=== PATIENT | female | born 1930 | race Caucasian/White ===

== ENCOUNTER 2018-03-11 06:04 | Inpatient (IN) | payer MEDICARE ==
[~2018-03-11] VITALS: Ht 154.9 cm; Wt 80.2 kg
[~2018-03-11 06:04] MED LIST: ASPIRIN EC81 MG PO; ATENOLOL50 MG PO; CIPROFLOXACIN500 MG PO; FAMOTIDINE40 MG PO; LOVASTATIN40 MG PO; METRONIDAZOLE250 MG PO; SYNTHROID88 MCG PO; VAGIFEM10 MCG VG
[2018-03-11] MEDS ORDERED: METOPROLOL SUCC50 MG PO (06:40)
--- NOTE | 2018-03-11 11:35 | NUR ---
PT TO ROOM 119 AT THIS TIME. PT ALERT AND ORIENTED. PT REPORTS NO PAIN, NO NAUSEA.
--- NOTE | 2018-03-11 12:56 | NUR ---
PT SITTING UP IN BED EATING HER LUNCH, ALERT AND ORIENTED. PT REPORTS NO PAIN.
--- NOTE | 2018-03-11 15:28 | EKG ---
[facility] [address] [facility] [place] [address] Signed Sinus rhythm with 1st degree AV block Left axis deviation Abnormal ECG When compared with ECG of 31-AUG-2016 21:25, No significant change was found Confirmed by MARGARETTE HO MD ([id number]) on 03/11/2018 3:28:25 PM Electronically Signed By: MARGARETTE HO MD 03/11/18 1528 PATIENT NAME: ANAHI CONNOR Electrocardiogram DATE OF : [birth year] PHYSICIAN: MARGARETTE HO MD REPORT #: [id number] REPORT IS CONFIDENTIAL AND NOT TO BE RELEASED WITHOUT AUTHORIZATION
--- NOTE | 2018-03-11 16:36 | NUR ---
THIS RN ASSUMING CARE OF PT. THIS RN TO ROOM TO CHECK ON PT. PT RESTING IN BED, NO REQUESTS OR COMPLAINTS. ASSESSMENT DONE. PT ASSISTED WITH TV REMOTE. MEDICATION GIVEN. BED RAILS UP. CALL LIGHT WITHIN REACH.
--- NOTE | 2018-03-11 16:54 | NUR ---
PT ARRIVED FROM ED TODAY FOR LIGHTHEADEDNES AND RECENT FALL. TELE#10, SR TODAY. +4 BACTERIA UTI, IV ABX. PT/OT. 2PA PIVOT TO COMODE. ECHO TODAY. PT USING CALL LIGHT APPROPRIATLY.
--- NOTE | 2018-03-11 16:57 | NUR ---
MED REC COMPLETED PER CLAIM HISTORY AND DISCUSSION WITH PATIENT.
--- NOTE | 2018-03-11 17:15 | NUR ---
THIS RN TO ROOM TO CHECK ON PT. PT REQUESTS ASSISTANCE WITH CUTTING UP HER FOOD. FOOD NOTED TO BE ON PTS SHEETS. PT STATES "I JUST WANT TO EAT AND THEN WE CAN CHANGE THE SHEETS." PT ASSISTED WITH CUTTING HER FOOD. TOWEL PLACED OVER PT FOR COMFORT WHILE EATING. PT OBSERVED SHE EATS HER FIRST 5 BITES. NO SWALLOWING ISSUES NOTED AT THIS TIME. BED RAILSUP. CALL LIGHT WITHIN REACH.
--- NOTE | 2018-03-11 19:51 | NUR ---
RECEIVED REPORT FROM DAY SHIFT RN. PATIENT IS RESTING IN BED VISITING WITH NEIGHBOR. PATIENT COMPLAINS OF BACK PAIN AND WOULD LIKE A TYLENOL WOTH EVEING MEDICATIONS. NO FURTHER NEEDS NOTED. CALL LIGHT IN REACH.
--- NOTE | 2018-03-11 20:15 | NUR ---
PATIENT ASSESMENT COMPLETED. [place] [facility] [place] PATIENT IS SLOW WITH MOVMENT. PATIENT HAS SMALL SCATTERED BRUISES UP AND DOWN THE RIGHT SIDE OF HER BACK. PATIENT STATED "THAT IS WHERE I FELL". PATIENT IS NOW BCAK IN BED RESTING. VITALS TAKEN AND RECORDED. PATIENT GIVEN EVENING MEDICATIONS PER ORDER. PATIENT RATES PAIN AT A 4/10. PATIENT GIVEN PRN TYLENOL. PATIENT DENIES ANY FURTHER NEEDS CALL LIGHT IN REACH.
--- NOTE | 2018-03-11 21:45 | NUR ---
PATIENT USED CALL LIGHT. PATIENT DENIES ANY NEEDS. PATIENT STATED "IT WAS AN ACCIDENT THAT I PUSHED THE BUTTON". REASSURED PATIENT THAT SHE COULD PUSH THE BUTTON FOR ANYTHING. PATIENT IS RESTING IN BED. CALL LIGHT IN REACH. ALARM ON FOR SAFETY.
--- NOTE | 2018-03-11 23:45 | NUR ---
PATIENT IS RESTING IN BED WITH EYES CLOSED, RR 16. TELE #10, NSR, HR 72. CALL LIGHT IN REACH.
--- NOTE | 2018-03-12 02:08 | NUR ---
PATIENT ASSISTED TO THE RESTROOM. PATIENT IS A 1-2PA W/FWW. PATIENT IS A PIVOT TRANSFER TO THE [facility] [place]. PATIENT WAS ABLE TO VOID. PATIENT IS NOW IN BED RESTING. PATIENT RATES PAIN AT A 4/10. PATIENT GIVEN PRN TYLENOL PER ORDER. PATIENT DENIES ANY FURTHER NEEDS AT THIS TIME. PATIENT REMAINS ON TELE #10, NSR, HR 78. CALL LIGHT IN REACH. PATIENT STATES THAT HER LIGHTHEADNESS IS LESS WHEN SHE IS GETTING UP NOW.
--- NOTE | 2018-03-12 04:59 | NUR ---
PATIENT RESTED ON AND OFF THROUGHOUT THE SHIFT. PATIENT IS ON A CARDIAC DIET AND TOLERATING WELL, NO NAUSEA NOTED. PATIENT IS WORKING WITH PT/OT. PATIENT IS ON TELE#10, NSR, HR IN THE 60-70'S. PATIENT IS A 1-2PA W/FWW, [place] [facility] [place]IENT RECEIVED X2 PRN TYLENOL FOR PAIN IN HER RIGHT BACK FROM A FALL. PATIENT MAKES FREQUENT BATHROOM TRIPS, OUPUT QS. PATIENT IS AAOX3 AND USES CALL LIGHT APPROPRIATELY.
--- NOTE | 2018-03-12 05:27 | NUR ---
PATIENTS VITALS TAKEN AND RECORDED. PATIENT ASSISTED TO THE BSC W/FWW. PATIENT WAS ABLE TO VOID. PATIENT IS NOW BACK IN BED RESTING. PATIENTS MORNGING MEDICAITONS GIVEN PER ORDER. PATIENT RATES PAIN AT A 2/10. PATIENT DENIES THE NEED FOR TYLENOL AT THIS TIME. PATIENT IS ON TELE #10, NSR, HR 66. PATIENT IS AAOX3. NO FURTHER NEEDS NOTED. PATIENT STATES SHE IS NOT DIZZY WHEN SHE GETS UP. CALL LIGHT IN REACH.
--- NOTE | 2018-03-12 06:58 | NUR ---
PATIENTS IV IS NOT LONGER PATENT. NEW IV STARTED. NO FURTHER NEEDS NOTED. CALL LIGHT IN REACH.
--- NOTE | 2018-03-12 07:48 | NUR ---
MORNING ASSESSMENT AND MEDICATIONS DUE. THIS RN TO BEDSIDE. PT REPORTS 7/10 PAIN "ONLY WHEN I'M MOVING." PAIN MANAGMENT PLAN DISCUSSED WITH PT. PT AGREEABLE TO PLAN. ASSESSMENT DONE. PT REPOSITIONED FOR BREAKFAST. MEDICATIONS GIVEN. PT STATES "THIS PAIN IS WORSE TODAY BUT I THINK I'M BETTER TODAY." BED RAILS UP. CALL LIGHT WITHIN REACH.
--- NOTE | 2018-03-12 08:40 | NUR ---
PATIENT UP IN BED, NEIGHBOR IN ROOM. PATIENT AGREED TO SHOWER AFTER PT THIS MORNING. 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 RN AND PT NOTIFIED. CALL LIGHT IN REACH
--- NOTE | 2018-03-12 09:05 | NUR ---
PT UP AMBULATING IN HALLS WITH PHYSICAL THERAPIST, ONE PERSON ASSIST WITH FWW.
--- NOTE | 2018-03-12 09:36 | NUR ---
INSURANCE CLAIMS SUPERVISOR REPORTS PTS FRIEND WAS HERE TO VISIT AND REPORTS THAT PT IS "NOT NORMAL." WHEN ASKED MORE PTS FRIEND STATES SLOW RESPONSES, AND SLURED SPEECH ARE NOT NORMAL FOR PT. THIS RN NOTIFIED AND TO BEDSIDE. FULL NEURO ASSESSMENT DONE. PUPILS REACTIVE. RIGTH SIDED LEG WEAKNESS NOTED. PT REPORTS DIFFICULTY BRINGING HER FORK TO MOUTH WITH RIGHT HAND DURING BREAKFAST. PT HAS DIFFICULTY TOUCHING NOSE WITH RIGHT HAND WHEN EYES ARE CLOSED, NO PROBLEM WITH LEFT HAND. MINOR SLURED SPEACH CONTINUES. PT ORIENED TO ALL. PT STATES "THIS HAS BEEN GOING ON FOR A WHILE" BUT IS UNABLE TO ARTICULATE WHAT S/S SHE IS REFERING TO. PT PLACED IN SHOWER CHAIR BY PHYSICAL THERAPY. PHYSICAL THERAPIST STATES PT IS LACKING PROPRIOCEPTION CITING THAT PT CANNOT TELL WHEN SHOWER CHAIR IS BEHIND HER. INSURANCE CLAIMS SUPERVISOR WITH PT FOR SHOWER. NOTIFIED OF CONDITION.
--- NOTE | 2018-03-12 09:50 | NUR ---
MD CALLED, UPDATED ON NEUROLOGICAL CHANGES. MD WILL VISIT PT SOON.
--- NOTE | 2018-03-12 10:00 | NUR ---
PATIENT IN SHOWER WITH THIS CNAS ASSISTANCE. PATIENT WAS ABLE TO HELP WITH VERY LITTLE OF THE SHOWER PROCEDURES. PATIENT APPEARS TO STRUGGLE IN LIFTING RIGHT ARM OR REACHING TO LEFT SIDE OF HER BODY WITH RIGHT ARM. PATIENT WAS VERY DELAYED AND AT TIMES, CONFUSED IN PERFORMING ANY ACTION DURING SHOWER, BUT REMEMBERED SHE WANTED HER OWN DEODORANT, FACE CREAM, AND RAZOR. VERY SLOW SHUFFLE BACK TO CHAIR. FRIEND/NEIGHBOR IN TO VISIT. DAUGHTER CALLED, PATIENT ASKED FOR HER TO CALL BACK. CALL LIGHT IN REACH, PATIENT BRUSHING HAIR AND TEETH IN CHAIR.
--- NOTE | 2018-03-12 10:05 | NUR ---
PT CALL LIGHT ON. THIS RN TO BEDSIDE. MACHINE PLUG SHAPER REQUESTS ASSISTANCE WITH GETTING PT BACK TO CHAIR. GATE BELT USED. PT ASSISTED BACK TO CHAIR. SHUFFELING GATE CONTINUES. PT ASSISTED WITH CONTINUED MORNING CARE AND ORAL CARE. PTS FRIEND HERE TO VISIT. PT WORKING WITH MACHINE PLUG SHAPER. NO ADDITIONAL REQUESTS OR COMPALINTS AT THIS TIME. CALL LIGHT WITHIN REACH.
--- NOTE | 2018-03-12 11:22 | NUR ---
FOCUSSED ASSESSMENT DUE. THIS RN TO BEDSIDE. PT VISITING WITH FRIEND. PTS FRIEND NOTES SLURRED SPEACH. PT REPORTS PAIN AT 5/10 "ONLY IF I MOVE." PT DECLINES NEED FOR ADDITIONAL MEDICATION AT THIS TIME STATING "I DON'T HAVE PAIN SITTING HERE." FOCUSSED ASSESSMENT DONE WITH SPECIAL ATTENTION TO NEUROLOCIAL. PT CONINUES TO HAVE SLURRED SPEACH, PROPRIOCEPTION ISSUES, MINOR WEAKNESS ON RIGHT SIDE AND SHUFFELING GATE. PT ORIENTED TO ALL. PT CONTINUES VISITING WITH FRIEND. PT ASSISTED TO ORDER LUNCH. NO ADDITIONAL REQUESTS OR COMPLAINTS. CALL LIGHT WITHIN REACH.
--- NOTE | 2018-03-12 12:01 | NUR ---
PT ASSISTED UP TO COMODE. 2PA, FWW. PT BACK TO CHAIR. NO REQUESTS OR COMPLAINTS AT THIS TIME. SHUFFELING GATE. GENERALIED WEAKNESS NOTED. DAUGHTER AT BEDSIDE. CALL LIGHT WITHIN REACH.
--- NOTE | 2018-03-12 13:45 | NUR ---
THIS BLOCK PRESS OPERATOR RESPONED TO CNAS CALL FOR A VITALS CART. PATIENT HAD GOTTEN VERY DIZZY IN BATHROOM AND WAS HAVING DIFFICULTY STANDING. VITALS WERE TAKEN AND JUDE BARRAGAN ASKED FOR ORHOSTATICS TO BE TAKEN. JUDE URIARTE IN ROOM BP STILL VERY HIGH, AND PATIENT STILL SHUFFLE-WALKED, BARLEY MOVING AT ALL, CONFUSED AND VERY WEAK ON HER FEET. WHEELCHAIR WAS USED TO MOVE PATIENT FROM TOILET TO BED. CALL LIGHT IN REACH. 2 NEW VISITORS IN ROOM
--- NOTE | 2018-03-12 14:30 | NUR ---
PATIENT UP IN BED, NEIGHBOR IN ROOM. VITALS AND I/OS CHARTED. DISCHARGE PLANNING IN ROOM. CALL LIGHT IN REACH
--- NOTE | 2018-03-12 17:00 | NUR ---
AFTERNOON ASSESSMENT AND MEDICATIONS DUE. THIS RN TO BEDSIDE. PT EATING DINNER. NO REQUESTS OR COMPLAINTS. PT VERBALIZES UNDERSTANDING OF PLAN OF CARE. ASSESSMENT DONE. MEDICATION GIVEN (SEE MAR). PT ANTICIPATING MRI LATER THIS EVENING. TYLENOL GIVEN FOR 5/10 PAIN THAT IS "WORSE WHEN I MOVE" AND IN ANTICIPATION OF THE MRI. NO ADDITIONAL REQUESTS OR COMPLAINTS AT THIS TIME. BED RAILS UP. CALL LIGHT WITHIN REACH.
--- NOTE | 2018-03-12 17:11 | NUR ---
PT HERE FOR RECENT FALL. TELE #10. 2PA PIVOT TO COMODE. PIV SL, VOIDING QUANITY SUFFICIENT. PRN TYLENOL FOR PAIN. LIDOCANE PATCH APPLIED. MONITORING NEURO STATUS CLOSELY, RIGHT SIDED WEAKNESS TODAY, SLURRED SPEACH AND SOME NUMBNESS. MRI TODAY AT 1800. PT/OT. PT USING CALL LIGHT APPROPRIATLY.
--- NOTE | 2018-03-12 17:40 | NUR ---
PATIENT UP IN BED, JUDE PALOMO IN WITH LIDOCAINE PATCH. VITALS AND I/OS CHARTED CALL LIGHT IN REACH
--- NOTE | 2018-03-12 17:58 | NUR ---
MRI TEAM ARRIVED. PT TRANSFERED WITH 4 PERSON ASSIST TO MRI BED. WARM BLANKET PROVIDED. PT LEAVES WITH TECHNITIAN AND A SMILE ON HER FACE.
--- NOTE | 2018-03-12 18:32 | NUR ---
PT RETURNED FROM MRI. PT TRANSFERED BACK TO BED WITH 4 PERSON ASSIST. WARM BLANKETS PROVIDED. TELE LEADS REPLACED, CCU CALLED. PT CALLING DAUGHTER TO UPDATE HER ON MRI. PT STATES SHE HAS NO REQUESTS OR COMPLAINTS AT THIS TIME AND WAS ABLE TO TOLERATE THE MRI "JUST FINE."
--- NOTE | 2018-03-12 18:53 | NUR ---
PT CALL LIGHT ON. PT REQUESTS ASSISTANCE UP TO COMODE. 2PA UP TO COMODE. PT REPORTS PAIN AT IV SITE. PIV ASSESSED. INFLAMATION NOTED. FLUSH ATTEMPTED. PT CRIES OUT IN PAIN. PIV DC'D PER PROTOCOL. PRESSURE HELD TO PIV SITE. GAUZE AND COBAN APPLIED. FRESH GOWN PROVIDED R/T BLEEDING. PT TRANFERED BACK TO BED. NEW PIV STARTED PER PROTOCOL. BLOOD RETURN NOTED WITH IV START. PIV SALINE LOCKED. ALCOHOL CAPS APPLIED. BED RAILS UP. CALL LIGHT WITHIN REACH.
--- NOTE | 2018-03-12 19:10 | NUR ---
RECEIVED REPORT FROM DAY SHIFT RN. PATIENT IS RESTING IN BED. NO NEEDS NOTED. CALL LIGHT IN REACH.
--- NOTE | 2018-03-12 20:25 | NUR ---
PATIENT ASSESMENT COMPLETED. PATIENT ASSISTED TO THE [facility] [place] PATIENT WAS ASSISTED A 1PA W/FWW, PIOVTG TRANSFER TO [facility] [place]. PATIENT IS UNSTEADY AND HAS A SHUFFLE TO HER GAIT. PATIENT DID TOLERATE ACTIVITY WELL. PATIENT WAS ABLE TO VOID. PATIENT IS BACK IN BED RESTING. NO FURTHER NEEDS NOTED. CALL LIGHT IN REACH.
--- NOTE | 2018-03-12 21:20 | NUR ---
[place] [facility] [place] PIVOT TRANSFER. PATIENT WAS ABLE TO VOID. PATIENT HAD A BOUT OF INCONTINENCE. PATIENTS UNDERWEAR AND PAD CHANGED. PATIENT IS NOW BACK IN BED RESTING. PAITENTS EVENING MEDICATIONS GIVEN PER ORDER. PATIENT GIVEN A PRN TYLENOL PER ORDER FOR 5/10 PAIN IN HER RIGHT BACK. PATIENT DENIES ANY FURTHER NEEDS AT THIS TIME. CALL LIGHT IN REACH.
--- NOTE | 2018-03-12 23:15 | NUR ---
PATIENT ASSISTED TO THE BSC BY FAMILY AND DIVORCE LEGAL ASSISTANT. PATIENT RATES PAIN AT A 4/10. PATIENT STATED "I AM JUST STIFF NOW". PATIENT IS BACK IN BED RESTING. BED ALARM ON FOR SAFETY. CALL LIGHT IN REACH.
--- NOTE | 2018-03-12 23:22 | NUR ---
PATIENT CALLED TO USE THE BATHROOM. 1 PA TO BEDSIDE COMMODE USING WALKER. PATIENT IS BACK IN BED. CALL LIGHT WITHIN REACH.
--- NOTE | 2018-03-13 00:17 | NUR ---
PT CALLED TO USE THE BATHROOM. PT DISORIENTATED, WANTING THE SIDE RAIL DOWN, BUT NOT SAYING THE WORDS. ASSISTED PT UP OUT OF BED, WITH FWW TO BSC. PT STATING SHE HAD A "DREAM", SEEMED TO NOT KNOW WHERE SHE WAS. USE THE BSC, THEN UP TO BED, SLOW TO RESPOND TO CUEING/COMMANDS. ONCE IN BED, ASSIST OF 2ND RN TO PULL PT UP IN BED, SHE AGAIN SAID SHE HAD A DREAM, AT ONE POINT KNEW SHE WAS IN THE HOSPITAL, BUT VERY SLOW TO RESPOND. ASSISTED HER IN POSITIONING TO PT COMFORT LEVEL, CLEARED UP SOME ONCE STAFFF LEFT ROOM. CALL LIGHT WITHIN REACH.
--- NOTE | 2018-03-13 01:23 | NUR ---
PATIENT ASSISTED TO THE BSC BY DIANA. PATIENT IS NOW BACK IN BED RESTING. PATIENT IS AAOX3. PATIENT STATED "SORRY ABOUT LAST TIME, I JUST HAD A VERY BAD DREAM". PATIENT IS ABLE TO ANSWER ALL QUESTIONS WITH NO PAUSES TO ANSWER. PATIENT RATES PAIN AT A 3/10. PATIENT DENIES ANY NEED FOR TYLENOL AT THIS TIME. NO FURTHER NEEDS NOTED. CALL LIGHT IN REACH.
--- NOTE | 2018-03-13 03:01 | NUR ---
PATIENT USED THE CALL LIGHT. 1 PA TO BEDSIDE COMMODE USING WALKER. CHANGED UNDERWEAR AND UNDER PAD. PATIENT IS BACK IN BED. CALL LIGHT WITHIN REACH.
--- NOTE | 2018-03-13 03:18 | NUR ---
PATIENT ASSISTED TO THE BS A 1PA W/FWW, PIVOT TRANSFER TO [facility] [place]. PATIENT WAS ABLE TO VOID. PATIENT IS BACK IN BED RESTING. PATIENT RATES PAIN AT A 4/10. PATIENT GIVEN PRN TYLENOL PER ORDER. PATIENT DENIES ANY FURTHER NEEDS CALL LIGHT IN REACH.
--- NOTE | 2018-03-13 05:05 | NUR ---
PATIENT RESTED ON AND OFF THROUGHOUT THE SHIFT. PATIENT IS ON A CRADIAC DIET. PATIENT IS ON RA. PATIENT IS WORKING WITH PT/OT. BLADIMIR IS ON TELE #10, NSR, HR IN THE 60-70. PATIENT IS A 1PA W/FWW, PIVOT TRANSFER TO [facility] [place]. PATIENT DENIED BEING LIGHT HEADED OR DIZZY. PATIENT RECEIVED PRN TYLENOL X2 FOR PAIN IN HER RIGHT BACK. PATIENT HAS A SHUFFLE TO HER GAIT. PATIENT IS SLOW TO RESPOND TO QUESTIONING AT TIMES. PATIENT IS AAOPX3 AND USES CALL LIGHT APPROPRIATELY.
--- NOTE | 2018-03-13 06:12 | NUR ---
PATIENTS VITALS TAKEN AND RECORDED. PATIENTS INTAKE AND OUPUT RECORDED. PATIENT RATES PAIN AT A 3/10. PATIENT DENIES THE NEED FOR PAIN MEDICATION AT THIS TIME. PATIENTS MORNING MEDICATION GIVEN PER ORDER. PATIENT DENIES ANY FURTHER NEEDS. CALL LIGHT IN REACH.
--- NOTE | 2018-03-13 08:00 | NUR ---
PT RESTING IN BED, MILDLY CONFUSED, PT IS SLOW TO SPEAK. PT DENIES DISTRESS, FORGETFUL. PT IS X1 ASSIST TO BSC WITH WALKER FOR BALANCE, GENERALIZED WEAKNESS. EATING BREAKFAST WITHOUT DIFFICULTY. WILL CONTINUE TO MONITOR.
--- NOTE | 2018-03-13 09:08 | NUR ---
PATIENT SITTING UP IN BED, USING INCENTIVE SPIROMETER. THIS COOKER MECHANIC ASSISTED PATIENT TO WASH HANDS AND FACE AND SET PATIENT UP FOR ORAL CARE. PATIENT REQUESTED HER RAZOR AND SHAVING CREAM AND ASKED TO BE ALONE WHILE SHE SHAVES. THIS COOKER MECHANIC PROVIDED PATIENT PRIVACY, AND RETURNED AT A LATER TIME, APPROXIMATELY FIVE MINUTES LATER. PATIENT WAS FINISHED SHAVING AND APPLYING LOTION. THIS COOKER MECHANIC ASKED PATIENT IF SHE NEEDED ANYTHING ELSE AND PATIENT APPEARED TO GET FRUSTRATED, STATING "JUST GO AWAY AND LEAVE ME ALONE. I WILL CALL YOU WHEN I NEED YOU." RN NOTIFIED. CALL LIGHT IN REACH. NO OTHER NEEDS AT THIS TIME.
--- NOTE | 2018-03-13 10:02 | NUR ---
MED REC COMPLETE
--- NOTE | 2018-03-13 11:54 | NUR ---
PT RESTING AT BEDSIDE, ASKED ABOUT LUNCH ORDER, GEOSCIENCE LABORATORY TECHNICIAN TO VERIFY ORDER IS IN SYSTEM. PT HAS NO DISTRESS, NO CHANGES IN CONDITION.
--- NOTE | 2018-03-13 14:39 | NUR ---
STEPPED IN TO CHECK ON PT, SHE SEEMED SOMEWHAT DISTANT. PT MENTIONED THAT SHE NEEDED THE HELP OF A INTERACTIVE WEB DEVELOPER. I RETRIEVED ONE FOR HER. WILL FOLLOW A NEEDED
[2018-03-13] MEDS ORDERED: LOVASTATIN40 MG PO (15:18)
[2018-03-13] MEDS ORDERED: CEPHALEXIN500 MG PO (15:18)
[2018-03-13] MEDS ORDERED: FAMOTIDINE20 MG PO (15:20)
[2018-03-13] MEDS ORDERED: LIDODERM1 EACH TD (15:21)
[2018-03-13] MEDS ORDERED: MAPAP500 M1 PO (15:21)
--- NOTE | 2018-03-13 15:38 | NUR ---
TALKED WITH PT ABOUT GOING TO A SNF AND SHE STATED SHE WANTS TO GO TO [facility] THIS IS KEEPING HER CLOSE FOR HER FAMILY. FAXED CHART NOTES INCLUDING FACESHEET, ER NOTES, H AND P, PROG NOTES, IMAGING, PT AND OT EVAL AND NOTES TO [facility] AND TALKED WITH STEFFANY. ORDERS ALSO FAXED FOR TOMORROW. CALLED [phone] AND TALKED WITH HER DAUGHTER NIDHI ABOUT PT GOING TO [facility] AND EXPLAINED ITEMS SHE MAY NEED OR LIKE THERE. TALKED ABOUT FINANCIAL INFOR ALSO. DAUGHTER SEEMED OK WITH EVERYTHING. RECIEVED A FAX CONFIRMATION REGARDING NOTES SENT TO [facility]
--- NOTE | 2018-03-13 16:13 | NUR ---
PT RESTING AT BEDSIDE, PT HAS GENERALIZED WEAKNESS AND GENERALIZED PAIN UPON MOVEMENT, GAVE PRN TYLENOL PER ORDERS. PT REMAINS FORGETFUL, NO DISTRESS. PT USING CALL LIGHT APPROPRIATELY. GETS OUT OF BED WITH ASSIST AND WALKER.
--- NOTE | 2018-03-13 17:35 | NUR ---
THIS WOOL WASHER ASSISTED PATIENT UP TO SHOWER. PATIENT SHOWERED INDEPENDENTLY WITH HELP FOR HARD TO REACH PLACES. PATIENT DRESSED IN CLEAN GOWN. PATIENT TRANSFERRED BACK TO BED. PATIENT SITTING UP IN BED, CALL LIGHT IN REACH, EATING DINNER. RN IN ROOM. NO OTHER NEEDS AT THIS TIME.
--- NOTE | 2018-03-13 18:48 | NUR ---
PT HAS BEEN UP WITH ASSIST TODAY, SUCCESSFULLY SHOWERED. PT HAS BEEN FORGETFUL BUT ABLE TO CONVERSE AND MAKE NEEDS KNOWN. CALL LIGHT APPROPRIATE FOR THE ENTIRE SHIFT.
--- NOTE | 2018-03-13 19:40 | NUR ---
RECEIVED REPORT FROM DAY SHIFT RN. PATIENT IS RESTING IN BED VISITING WITH FAMILY. NO NEEDS NOED. CALL LIGHT IN REACH.
--- NOTE | 2018-03-13 21:07 | NUR ---
PATIENT ASSESMENT COMPLETED. PATIENT ASSISTED TO THE RESTROOM A 1PA W.FWW. PATIENT PIVOT TRANSFERED TO THE [facility] [place]. PATIENT CONTINUES TO HAVE A SHUFFLE TO HER GAIT. PATIENT TOLERATED ACTIVITY WELL. PATIENT IS BACK IN BED RESTING. PATIENT RATES PAIN AT A 5/10 W/ACTIVITY. PATIENT GIVEN PRN TYLENOL PER ORDER AND PER PATIENT REQUEST. PATIENTS EVENING MEDICATIONS GIVEN PER ORDER. PATIENT DENIES ANY FURTHER NEEDS CALL LIGHT IN REACH.
--- NOTE | 2018-03-13 23:11 | NUR ---
PATIENT IS RESTING IN BED WITH EYES CLOSED, RR 17. CALL LIGHT IN REACH.
--- NOTE | 2018-03-14 00:59 | NUR ---
PATIENT ASSISTED TO THE RESTROOM BY PACKAGING ENGINEER. PATIENT IS NOW BACK IN BED RESTING. PATIENT DENIES ANY NEEDS AT THIS TIME. CALL LIGHT IN REACH.
--- NOTE | 2018-03-14 01:50 | NUR ---
PATIENT ASSISTED TO THE RESTROOM. PATIENT IS A 1PA W/FWW. PATIENT WAS INCONTINENT AND ABLE TO VOID A SMALL AMOUNT. PATIENT IS BACK IN BED RESTING. PATIENT GIVEN PRN TYLENOL PER REQUEST FOR 4/10 PAIN IN HER RIGHT BACK. PATIENT IS VERY TEARFUL. PATIENT PROVIDED WITH EMOTIONAL SUPPORT AND REASSURANCE. NO FURTHER NEEDS NOTED. CALL LIGHT IN REACH.
--- NOTE | 2018-03-14 02:36 | NUR ---
PATIENT ASSISTED TO THE BSC A 1PA W/FWW. PATIENT WAS ABLE TO VOID A SMALL AMOUNT. PATIENT IS BACK IN BED RESTING. PATIENT STATED "MY PAIN IS BETTER WITH THE TYLENOL YOU GAVE ME". NO FURTHER NEEDS NOTED. CALL LIGHT IN REACH.
--- NOTE | 2018-03-14 04:19 | NUR ---
PATIENT IS RESTING IN BED WITH EYES CLOSED, RR 17. CALL LIGHT IN REACH.
--- NOTE | 2018-03-14 04:55 | NUR ---
PATIENT RESTED ON AND OFF THROUGHOUT THE SHIFT. PATIENT MADE MULTIPLE TRIPS TO THE [facility] [place]. PATIENT IS ON A CRADIAC DIET AND TOELRATING IT WELL. PATIENT IS WORKING WITH PT/OT. PATIENT IS A 1PA W/FWW. PATIENT IS SL AND IV FLUSHES WELL. PATIENT RECEIVED PRN TYLENOL X2 FOR PAIN IN HER RIGHT BACK. PATIENT IS AAOX3.
--- NOTE | 2018-03-14 04:57 | NUR ---
PATIENT RESTED ON AND OFF THROUGHOUT THE SHIFT. PATIENT MADE MULTIPLE TRIPS TO THE [facility] [place] PATIENT IS ON A CRADIAC DIET AND TOELRATING IT WELL. PATIENT IS WORKING WITH PT/OT. PATIENT IS A 1PA W/FWW. PATIENT IS SL AND IV FLUSHES WELL. PATIENT RECEIVED PRN TYLENOL X2 FOR PAIN IN HER RIGHT BACK. PATIENT IS AAOX3.
--- NOTE | 2018-03-14 06:26 | NUR ---
PATIENT ASSISTED TO THE BSC A 1PA W/FWW. PATIENT WAS ABLE TO VOID A SMALL AMOUNT. PATIENT ASSISTED TO DRESS. PATIENT IS NOW RESTING IN RECLINER AND IS READY TO DC AT 0830. PATIENT GIVEN PRN TYLENOL FOR PAIN IN HER BACK. PATIENT ALSO GIVEN SCHEDULED MORNING MEDICAITONS PER ORDER. NO FURTHER NEEDS NOTED. CALL LIGHT IN REACH.
--- NOTE | 2018-03-14 07:19 | NUR ---
LETICIA FAXED TO [facility].
--- NOTE | 2018-03-14 08:00 | NUR ---
PT UP TO CHAIR, DOING MORNING ROUTINE, BREAKFAST EATEN EARLY. PT READY FOR DISCHARGE. PT HAS NO DISTRESS, STATES SHE DOESN'T FEEL WELL. PT CANNOT ARTICULATE WHY SHE IS FEELING POORLY. PUBLIC WORKS LABORER EQUAL, X1 ASSIST WITH WALKER. PREPARING FOR DISCHARGE. REPORT CALLED TO FACILITY, CALLED [facility].
--- NOTE | 2018-03-14 08:05 | NUR ---
PACKET FOR [facility] PREPPED AND GIVEN TO NURSING STAFF FOR PT GO TO [facility].
--- NOTE | 2018-03-14 10:50 | NUR ---
MET WITH PT SHE WAS BEING WHEELED OUT FOR DC. SHE REACHED OUT FOR MY HAND, AND SAID SHE WAS GOING TO GET BETTER.EXTENDED A BLESSING, SHE THANKED ME.
== END 2018-03-14 08:25 | DRG 65 ==
LOC: ED 06:04 → MS 11:09
PROVIDERS: ADMIT Internal Medicine
DX: I63.9 Cerebral infarction, unspecified (principal); N30.00 Acute cystitis without hematuria; R47.1 Dysarthria and anarthria; R20.1 Hypoesthesia of skin; B96.20 Unspecified Escherichia coli [E. coli] as the cause of diseases classified elsewhere; E86.0 Dehydration; I69.393 Ataxia following cerebral infarction; I10 Essential (primary) hypertension; K21.9 Gastro-esophageal reflux disease without esophagitis; E03.9 Hypothyroidism, unspecified; E78.5 Hyperlipidemia, unspecified; R53.1 Weakness; Z79.82 Long term (current) use of aspirin; Z79.899 Other long term (current) drug therapy
CPT/HCPCS: 70450; 70551; 71045; 71275; 74175; 80053; 81001; 84484; 85025; 87077; 87088; 87186; 93005; 93010; 93306; 93880; 94667; 96374; 96376; 97116; 97162; 97166; 97530; 97535; 99285; J0696; J1650; J7030; J7120; Q9967